=== PATIENT | male | born 1970 | race Caucasian/White ===

== ENCOUNTER 2025-03-15 03:44 | Emergency (ER) | payer BC ==
[2025-03-15] MEDS: Amoxicillin/Clavulanate K 875-125 MG Tab PO ONE (04:30)
[2025-03-15] MEDS: Ketorolac 30 MG/ML SDV IM ONE (04:41)
== END 2025-03-15 04:49 | disposition home or self-care (01) ==
LOC: MW.ED 03:44
DX: K08.89 Other specified disorders of teeth and supporting structures (principal); Z79.899 Other long term (current) drug therapy
CPT/HCPCS: 96372; 99282; A9270; J1885; 99283